=== PATIENT | female | born 1980 | race Caucasian/White ===

== ENCOUNTER 2016-12-04 21:02 | Emergency (ER) | payer SELFPAY | END 2016-12-04 23:30 | disposition home or self-care (01) | LOC: D.ER 21:02 | DX: L03.311 Cellulitis of abdominal wall (principal); L02.211 Cutaneous abscess of abdominal wall ==

== ENCOUNTER 2017-02-06 14:18 | Emergency (ER) | payer SELFPAY ==
[2017-02-06 15:13] LABS: APPEARANCE CLEAR (CLEAR); BILIRUBIN NEGATIVE (NEGATIVE); COLOR YELLOW (YELLOW); GLUCOSE NEGATIVE (NEGATIVE); KETONE NEGATIVE (NEGATIVE); LEUKOCYTE ESTERASE NEGATIVE (NEGATIVE); NITRITE NEGATIVE (NEGATIVE); PROTEIN NEGATIVE (NEGATIVE); UROBILINOGEN NORMAL (NORMAL)
== END 2017-02-06 15:52 | disposition home or self-care (01) ==
LOC: D.ER 14:18
PROVIDERS: Nurse Practitioner Acute Care
DX: G89.18 Other acute postprocedural pain (principal); F17.200 Nicotine dependence, unspecified, uncomplicated